=== PATIENT | female | born 1945 | race Caucasian/White ===

== ENCOUNTER 2023-12-03 14:49 | Outpatient (CLI) | payer MEDICARE, BC | END 2023-12-03 14:50 | disposition home or self-care (01) | LOC: CSHMAMMO 14:49 | PROVIDERS: ATTEND Internal Medicine Rheumatology | DX: M81.0 Age-related osteoporosis without current pathological fracture (principal); M25.571 Pain in right ankle and joints of right foot | CPT/HCPCS: 77080 ==